=== PATIENT | female | born 2000 | race Caucasian/White ===

== ENCOUNTER 2021-08-14 05:02 | Inpatient (IN) ==
[2021-08-14] MEDS ORDERED: Ringers Solution, Lactated 1,000 ML IVC ONE (05:08)
[2021-08-14] MEDS ORDERED: Azithromycin 500 MG in 0.9 % Sodium Chloride 250 ML IVPB PRN (05:08)
[2021-08-14] MEDS ORDERED: Oxytocin 20 units/ LR 1000 mL 20 UNIT/1,000 ML BAG IVC ONE ×2 (05:08→07:19)
[2021-08-14] MEDS ORDERED: CeFAZolin 2,000 MG/120 ML BAG IVPB ONE (05:08)
[2021-08-14] MEDS ORDERED: Famotidine 20 MG/2 ML VIAL IVP ONE ×2 (05:08→07:19)
[2021-08-14] MEDS ORDERED: Metoclopramide 10 MG/2 ML VIAL IVP ONE ×2 (05:08→07:19)
[2021-08-14] MEDS ORDERED: Oxytocin 20 units/ LR 1000 mL 20 UNIT/1,000 ML BAG IVC SCH ×2 (05:15→12:26)
[2021-08-14] MEDS ORDERED: Ringers Solution, Lactated 1,000 ML IVC SCH ×2 (05:15→07:30)
[2021-08-14 06:07] LABS: Basophils # 0.1 K/mcL (0.0-0.2); Basophils % 0.6 %; Eosinophils # 0.2 K/mcL (0.0-0.6); Eosinophils % 2.2 %; Hematocrit 32.2 % (35.3-44.9); Hemoglobin 9.9 g/dL (11.5-15.4); Immature Granulocytes % 2.9 % (0-4); Lymphocytes # 1.8 K/mcL (0.6-4.6); Lymphocytes % 17.1 %; Mean Corpuscular HGB Conc 30.7 g/dL (31.6-35.5); Mean Corpuscular Hemoglobin 23.4 pg (28.0-33.3); Mean Corpuscular Volume 76.1 fL (83.0-100.0); Mean Platelet Volume 9.1 fL (9.4-12.4); Monocytes % 9.2 %; Neutrophils # 7.3 K/mcL (1.6-8.9); Platelet Count 333 K/mcL (140-400); Red Blood Count 4.23 M/mcL (3.82-4.97); Red Cell Distribution Width 26.6 % (11.5-14.5); White Blood Count 10.7 K/mcL (4.3-11.1)
[2021-08-14 06:40] LABS: Influenza A PCR Negative (Negative); Influenza B PCR Negative (Negative); Resp. Syncytial Virus PCR Negative (Negative)
[2021-08-14 06:41] LABS: SARS-CoV-2 by PCR (In House) Negative (Negative)
[2021-08-14] MEDS ORDERED: *HR* FentaNYL (PF) 100 MCG/2 ML VIAL IVP PRN (07:19)
[2021-08-14] MEDS ORDERED: Clindamycin 900 MG/50 ML 900 MG/50 ML IV.SOLN IVPB ONE (07:19)
[2021-08-14] MEDS ORDERED: Gentamicin 380 MG in 0.9 % Sodium Chloride 100 ML IVPB ONE (07:19)
[2021-08-14] MEDS ORDERED: *HR* OxyCODONE Immed Rel 5 MG TABLET PO PRN ×2 (07:19→12:26)
[2021-08-14] MEDS ORDERED: Ondansetron 4 MG/2 ML VIAL IVP PRN ×2 (07:19→12:26)
[2021-08-14] MEDS ORDERED: Acetaminophen IV 1,000 MG/100 ML BAG IVPB PRN (07:19)
[2021-08-14] MEDS ORDERED: *HR* Morphine Sulfate/PF 10 MG/10 ML AMPUL ONE (07:31)
[2021-08-14] MEDS ORDERED: EPHEDrine 50 MG/ML VIAL ONE (08:25)
[2021-08-14] MEDS ORDERED: *HR* Phenylephrine 10 MG/ML VIAL ONE (08:31)
[2021-08-14] MEDS ORDERED: Acetaminophen IV 1,000 MG/100 ML BAG IVPB ONE (08:54)
[2021-08-14] MEDS ORDERED: Ketorolac 30 MG/ML VIAL ONE (08:56)
[2021-08-14 09:24] LABS: Amphetamine Screen,Urine Negative ng/mL (Cutoff=1000); Barbiturate Screen,Urine Negative ng/mL (Cutoff=200); Benzodiazepines Screen,Urine Negative ng/mL (Cutoff=200); Cannabinoid Screen,Urine Negative ng/mL (Cutoff = 50); Cocaine Screen,Urine Negative ng/mL (Cutoff= 300); Opiate Screen,Urine Negative ng/mL (Cutoff=300); Phencyclidine Screen,Urine Negative ng/mL (Cutoff=25)
[2021-08-14] MEDS ORDERED: 0.9 % Sodium Chloride 1,000 ML IVC SCH (12:26)
[2021-08-14] MEDS ORDERED: Simethicone 80 MG TAB.CHEW PO PRN (12:26)
[2021-08-14] MEDS ORDERED: Naloxone 0.4 MG/ML INJ IVP PRN (12:26)
[2021-08-14] MEDS ORDERED: Metoclopramide 10 MG/2 ML VIAL IVP PRN (12:26)
[2021-08-14] MEDS: Acetaminophen 325 MG TABLET PO SCH ×2 (13:52→23:06)
[2021-08-14] MEDS: Ibuprofen 600 MG TABLET PO SCH (23:06)
[2021-08-15] MEDS: Ibuprofen 600 MG TABLET PO SCH (04:40)
[2021-08-15] MEDS: Acetaminophen 325 MG TABLET PO SCH (04:40)
[2021-08-15 05:00] VITALS: O2SAT 95
[2021-08-15 05:12] LABS: Basophils % 0.3 %; Eosinophils # 0.2 K/mcL (0.0-0.6); Eosinophils % 2.4 %; Hematocrit 32.1 % (35.3-44.9); Hemoglobin 9.5 g/dL (11.5-15.4); Immature Granulocytes % 1.5 % (0-4); Lymphocytes # 1.2 K/mcL (0.6-4.6); Lymphocytes % 12.7 %; Mean Corpuscular HGB Conc 29.6 g/dL (31.6-35.5); Mean Corpuscular Hemoglobin 22.7 pg (28.0-33.3); Mean Corpuscular Volume 76.8 fL (83.0-100.0); Monocytes % 10.6 %; Platelet Count 273 K/mcL (140-400); Red Blood Count 4.18 M/mcL (3.82-4.97); Red Cell Distribution Width 27.3 % (11.5-14.5); Segmented Neutrophils % 72.5 %; White Blood Count 9.7 K/mcL (4.3-11.1)
[2021-08-15 06:26] LABS: Anisocytosis 1+ (Not Present)
[2021-08-15 07:09] VITALS: BP 92/44; PULSE 71; TEMP 98.7
[2021-08-15] MEDS ORDERED: Prenatal Vit/FA 1 EACH TABLET PO SCH (09:00)
== END 2021-08-15 11:22 | disposition home or self-care (01) | DRG 540 ==
LOC: 1NENULAB 05:02 → 1NENUOBS 12:01
PROVIDERS: ADMIT Obstetrics & Gynecology; ATTEND Obstetrics & Gynecology